=== PATIENT | male | born 1990 | race Caucasian/White ===

== ENCOUNTER 2017-10-22 11:46 | Emergency (ER) | payer OTHER ==
[~2017-10-22] VITALS: Ht 175.3 cm; Wt 81.6 kg
[2017-10-22 11:46] VITALS: BP 124/70
--- NOTE | 2017-10-22 11:46 | NUR ---
PT A/O X4. NEG ACUTE DISTRESS. NEG SOB. SKINS PINK WARM AND DRY . STABLE CONDITION. SAFETY MEASURES IN PLACE. Addendum: 10/22/17 at 1159 by PEPITO PALPITATION AND LIGHTHEADEDNESS, DENIES CHEST PAIN. PT STATED, "I DRANK AND SMOKED WEED LAST NIGHT." Addendum: 10/22/17 at 1218 by PEPITO PT STATES, "I WAS AT THE GYM WHEN I STARTED FEELING LIKE THIS AND I TOOK MY PREWORKOUT SUPPLIMENTS."
--- NOTE | 2017-10-22 13:33 | NUR ---
Patient discharged to home in stable condition. Written and verbal after care instructions given. Patient verbalizes understanding of instruction.
== END 2017-10-22 13:32 | disposition home or self-care (01) ==
LOC: ER 11:48
DX: R00.2 Palpitations (principal); J45.909 Unspecified asthma, uncomplicated; F17.200 Nicotine dependence, unspecified, uncomplicated; Z88.6 Allergy status to analgesic agent
CPT/HCPCS: A4606; Z7610